=== PATIENT | female | born 1945 | race Caucasian/White ===

== ENCOUNTER 2018-04-02 14:51 | Emergency (ER) | END 2018-04-02 20:47 | disposition home or self-care (01) ==

== ENCOUNTER → 2018-12-03 | Outpatient (CLI) | payer MEDICARE, OTHER ==
[~2018-12-03] MED LIST: BARIUM SULFATE 0.1% 450 ML BTL (VOLUMEN) PO ONE; EMPA10TA PO; IOHEXOL 100 ML ONE; LISI2.5T59 PO; METF100010 PO; ONDA4TAB14 PO; SIMV20TA PO; SOD CHLORIDE 0.9% 100 ML ONE
== END | disposition home or self-care (01) ==
LOC: C/S 08:51
PROVIDERS: ATTEND Internal Medicine
DX: K86.2 Cyst of pancreas (principal)
CPT/HCPCS: 74160; Q9967